=== PATIENT | female | born 1990 | race African-American/Black ===

== ENCOUNTER 2017-04-03 15:27 | Emergency (ER) | payer OTHER ==
[~2017-04-03] VITALS: Ht 167.6 cm; Wt 123.0 kg
[~2017-04-03 15:27] MED LIST: ACETIC ACID2 % AU; ADVIL200 MG OR; AZITHROMYCIN500 MG PO; BACTRIM DS1 TAB PO; BENZONATATE200 MG PO; BIRTH CONTROL PILLS; CIPROFLOXACN500 MG PO; CLEOCIN VAG2 % VA; CODEINE/APAP1 TA1 OR; DENIES CURRENT MEDS; DIFLUCAN150 MG PO; ENGERIX-B10 MG/0.5 IM; FLAGYL250 MG PO; FLEXERIL PO; FOLIC ACID1 MG PO; KEFLEX500 M1 PO; KEFLEX500 MG OR; LORTAB 10-325 M1 TAB PO; LORTAB 7.57.5 MG PO; MULTI VIT PO; NAPROSYN375 MG PO; NAPROSYN500 MG PO; NO; NO HOME MEDS; PRE-NATAL PO; PRENATAL1 TA1 PO; PREVACID30 M1 PO; ROCEPHIN 2250 MG/VIA IM; SMZ-TMP DS1 TAB PO; TESSALON PER100 MG PO; TYLENOL 500MG TAB PO; ULTRAM50 M1 PO; ZITHROMAX250 MG PO; ZITHROMAX500 MG PO; ZYRTEC-D AL1 OR
[2017-04-03] MEDS ORDERED: TYLENOL # 31 TA1 PO (15:37)
[2017-04-03 16:00] LABS: HEMATOCRIT 37.8 % (37.0-47.0); HEMOGLOBIN 11.4 g/dl (12.0-16.0); IMMATURE GRANULOCYTES 0.2 % (0.0-1.0); MEAN CELL VOLUME 70.7 fL CALC (80.0-100.0); MEAN CORPUSCULAR HGB 21.3 pG CALC (26.0-32.0); MEAN CORPUSCULAR HGB CONC 30.2 g/L CALC (32.0-36.0); NEUT# 4.4 thou/uL (2.00-7.15); RED BLOOD COUNT 5.35 mill/uL (4.20-5.60); RED CELL DISTRI WIDTH 16.8 % (11.5-15.5)
[2017-04-03 16:14] LABS: ALBUMIN 4.3 g/dL (3.2-5.0); ALKALINE PHOSPHATASE 110 u/l (38-126); AMYLASE 79 u/l (30-110); ANION GAP 15 (6-22 (CALC)); BILIRUBIN, TOTAL 0.3 mg/dL (0.0-1.4); BUN 11 mg/dL (7-17); BUN/CREATININE RATIO 16 (12-20 (CALC)); CARBON DIOXIDE 26 mmol/l (22-30); CHLORIDE 102 mmol/l (95-108); CREATININE 0.7 mg/dL (0.5-1.0); GFR > 60 ML/MIN (>=60 (CALC)); GFR FOR AFR.AMER. > 60 ML/MIN (>=60 (CALC)); GLUCOSE 253 mg/dL (65-105); LIPASE 81 u/l (23-300); POTASSIUM 4.1 mmol/l (3.5-5.1); SGOT/AST 16 u/l (14-36); SGPT/ALT 24 u/l (9-52); SODIUM 140 mmol/l (137-146); TOTAL PROTEIN 7.5 g/dL (6.3-8.2)
[2017-04-03] MEDS ORDERED: ZOFRAN ODT4 MG PO (16:43)
[2017-04-03] MEDS ORDERED: IMODIUM2 MG PO (16:43)
[2017-04-03] MEDS ORDERED: NEXIUM40 M1 PO (16:43)
[2017-04-03 17:32] VITALS: BP 121/70
== END 2017-04-03 17:33 | disposition home or self-care (01) | DRG 392 ==
LOC: ED 15:27
PROVIDERS: Emergency Medicine
DX: K52.9 Noninfective gastroenteritis and colitis, unspecified (principal); R11.10 Vomiting, unspecified; R19.7 Diarrhea, unspecified; R10.30 Lower abdominal pain, unspecified; R10.13 Epigastric pain

== ENCOUNTER 2021-07-13 10:26 | Emergency (ER) | payer OTHER ==
[~2021-07-13] VITALS: Ht 167.6 cm; Wt 84.0 kg
[~2021-07-13 10:26] MED LIST changes: +IMODIUM2 MG PO; +NEXIUM40 M1 PO; +TYLENOL # 31 TA1 PO; +ZOFRAN ODT4 MG PO
[2021-07-13] MEDS ORDERED: LANTUS100 UNIT SC (11:25)
[2021-07-13] MEDS ORDERED: TRULICITY1.5 MG/0.5 (11:26)
[2021-07-13] MEDS ORDERED: ADDERALL XR20 MG PO (11:27)
[2021-07-13 14:28] VITALS: BP 129/73
== END 2021-07-13 14:28 | disposition left against medical advice (07) ==
LOC: ED 10:26
DX: Z91.19 Patient's noncompliance with other medical treatment and regimen (principal)

== ENCOUNTER 2021-09-19 21:42 | Emergency (ER) | payer OTHER ==
[~2021-09-19] VITALS: Ht 167.6 cm; Wt 88.0 kg
[~2021-09-19 21:42] MED LIST changes: +ADDERALL XR20 MG PO; +LANTUS100 UNIT SC; +TRULICITY1.5 MG/0.5
[2021-09-19 21:55] VITALS: BP 150/105
[2021-09-19 22:31] VITALS: BP 138/86
[2021-09-19 23:13] LABS: HEMOGLOBIN 12.6 g/dl (12.0-16.0); IMMATURE GRANULOCYTES 0.1 % (0.0-5.0); MEAN CORPUSCULAR HGB 26.9 pG CALC (26.0-32.0); MEAN CORPUSCULAR HGB CONC 32.3 g/dL CAL (32.0-36.0); NEUT# 5.02 thou/uL (2.00-7.15); RED BLOOD COUNT 4.69 mill/uL (4.20-5.60); RED CELL DISTRI WIDTH 13.6 % (11.5-15.5)
[2021-09-19 23:17] LABS: MEAN CELL VOLUME 83.2 fL CALC (80.0-100.0)
[2021-09-19 23:27] LABS: ALBUMIN 4.2 g/dL (3.2-5.0); ALKALINE PHOSPHATASE 78 u/l (38-126); ANION GAP 14 (6-22 (CALC)); BUN 12 mg/dL (7-17); BUN/CREATININE RATIO 18 (12-20 (CALC)); CARBON DIOXIDE 24 mmol/l (22-30); CHLORIDE 104 mmol/l (95-108); CREATININE 0.6 mg/dL (0.5-1.0); GFR > 60 ML/MIN (>=60 (CALC)); GFR FOR AFR.AMER. > 60 ML/MIN (>=60 (CALC)); POTASSIUM 3.3 mmol/l (3.5-5.1); SGOT/AST 22 u/l (14-36); SODIUM 138 mmol/l (137-146); TOTAL PROTEIN 7.5 g/dL (6.3-8.2)
[2021-09-19 23:30] LABS: ACT PARTIAL THROMBO TIME 25.2 SECONDS (20.0-32.5); PROTHROMBIN TIME 10.7 SECONDS (9.0-12.5)
[2021-09-19 23:31] LABS: BILIRUBIN, TOTAL 0.5 mg/dL (0.0-1.4)
[2021-09-20 00:20] LABS: URINE BILIRUBIN - DIPSTICK NEGATIVE (NEGATIVE); URINE BLOOD DIPSTICK TRACE-INTACT (NEGATIVE); URINE COLOR YELLOW; URINE GLUCOSE - DIPSTICK 100 mg/dL (NEGATIVE); URINE KETONE NEGATIVE (NEGATIVE); URINE LEUK ESTERASE NEGATIVE (NEGATIVE); URINE NITRITE - DIPSTICK NEGATIVE (Negative); URINE PH 6.5 (4.5-8.0); URINE PROTEIN - DIPSTICK NEGATIVE (NEG-TRACE); URINE SPECIFIC GRAVITY 1.025; URINE UROBILINOGEN - DIPSTICK 0.2 E.U./dL (0.2)
== END 2021-09-20 01:11 | disposition home or self-care (01) ==
LOC: ED 21:42
PROVIDERS: Emergency Medicine
DX: R53.81 Other malaise (principal); R53.83 Other fatigue; R07.89 Other chest pain; K59.00 Constipation, unspecified; R23.3 Spontaneous ecchymoses; E11.9 Type 2 diabetes mellitus without complications; Z79.4 Long term (current) use of insulin

== ENCOUNTER 2021-12-19 16:05 | Emergency (ER) | payer OTHER ==
[~2021-12-19] VITALS: Ht 167.6 cm; Wt 89.8 kg
[2021-12-19 16:50] LABS: HEMATOCRIT 41.6 % (37.0-47.0); HEMOGLOBIN 13.2 g/dl (12.0-16.0); IMMATURE GRANULOCYTES 0.1 % (0.0-5.0); MEAN CELL VOLUME 83.4 fL CALC (80.0-100.0); MEAN CORPUSCULAR HGB 26.5 pG CALC (26.0-32.0); MEAN CORPUSCULAR HGB CONC 31.7 g/dL CAL (32.0-36.0); NEUT# 4.86 thou/uL (2.00-7.15); RED BLOOD COUNT 4.99 mill/uL (4.20-5.60); RED CELL DISTRI WIDTH 13.3 % (11.5-15.5)
[2021-12-19 16:54] LABS: ALBUMIN 4.3 g/dL (3.2-5.0); ALKALINE PHOSPHATASE 82 u/l (38-126); ANION GAP 10 (6-22 (CALC)); BILIRUBIN, TOTAL 0.5 mg/dL (0.0-1.4); BUN 11 mg/dL (7-17); BUN/CREATININE RATIO 17 (12-20 (CALC)); CARBON DIOXIDE 25 mmol/l (22-30); CHLORIDE 104 mmol/l (95-108); CREATININE 0.6 mg/dL (0.5-1.0); GFR FOR AFR.AMER. > 60 ML/MIN (>=60 (CALC)); GFR OTHER RACES > 60 ML/MIN (>=60 (CALC)); LIPASE 75 u/l (23-300); POTASSIUM 3.6 mmol/l (3.5-5.1); SGOT/AST 23 u/l (14-36); SODIUM 135 mmol/l (137-146); TOTAL PROTEIN 7.6 g/dL (6.3-8.2)
[2021-12-19 17:40] LABS: URINE BILIRUBIN - DIPSTICK NEGATIVE (NEGATIVE); URINE BLOOD DIPSTICK NEGATIVE (NEGATIVE); URINE COLOR YELLOW; URINE GLUCOSE - DIPSTICK NEGATIVE (NEGATIVE); URINE KETONE NEGATIVE (NEGATIVE); URINE LEUK ESTERASE NEGATIVE (NEGATIVE); URINE PROTEIN - DIPSTICK NEGATIVE (NEG-TRACE); URINE SPECIFIC GRAVITY 1.015; URINE UROBILINOGEN - DIPSTICK 0.2 E.U./dL (0.2)
[2021-12-19 17:43] LABS: URINE NITRITE - DIPSTICK NEGATIVE (Negative)
[2021-12-19] MEDS ORDERED: LORTAB 1010 MG PO (19:53)
[2021-12-19] MEDS ORDERED: ONDANSETRON4 MG PO (19:55)
[2021-12-19 20:03] VITALS: BP 146/82
== END 2021-12-19 20:08 | disposition home or self-care (01) ==
LOC: ED 16:05
PROVIDERS: Internal Medicine
DX: R10.2 Pelvic and perineal pain (principal); E11.9 Type 2 diabetes mellitus without complications; Z79.4 Long term (current) use of insulin